=== PATIENT | female | born 1990 | race Caucasian/White ===

== ENCOUNTER 2018-01-31 20:25 | Observation (INO) | payer OTHER, SELFPAY ==
[2018-01-31 20:48] VITALS: BP 165/96; PULSE 123; RESP 15; TEMP 37.3; O2SAT 100; BMI 27.4
[2018-01-31 20:53] LABS: Bacteria Urine None Seen; RBC Urine None Seen (0-5/HPF)
--- NOTE | 2018-01-31 21:01 | ED_ITS ---
HPI - Abdominal Pain General Chief Complaint: Abdominal Pain Stated Complaint: RIGHT LOWER ABD PAIN Time Seen by Provider: 01/31/18 20:58 Source: patient Mode of arrival: ambulatory Limitations: no limitations History of Present Illness HPI narrative: 27-year-old female here for evaluation of right lower quadrant abdominal pain. Patient states that it started fairly abruptly at approximately 3 o'clock this afternoon. She states that she has had an ovarian cyst in the past and this feels somewhat like her prior ovarian cyst. She states that she tried to eat something at 4 o'clock this afternoon but became very nauseous afterwards. Has not had anything to eat or drink since then. No fevers. No vaginal bleeding. No urinary symptoms. No change in bowel habits. Has had some nausea but no vomiting. No prior abdominal surgeries. Related Data Home Medications Medication Instructions Recorded Confirmed No Known Home Medications 02/01/18 02/01/18 Allergies Allergy/AdvReac Type Severity Reaction Status Date / Time No Known Drug Allergies Allergy Verified 02/01/18 00:03 Review of Systems Constitutional Denies fatigue, Denies fever(s) and Denies headache(s) ENT Ears, Nose, Mouth, and Throat: Denies headache(s) Cardiovascular Denies chest pain and Denies dyspnea Respiratory Denies cough and Denies dyspnea Gastrointestinal Gastrointestinal: Reports abdominal pain, Denies change in bowel habits, Denies constipation, Denies diarrhea, Reports nausea and Denies vomiting Genitourinary Denies hematuria and Denies dysuria Musculoskeletal Denies myalgias and Denies arthralgias Integumentary/Breasts Denies lesions and Denies rash Neurologic Denies headache(s) Endocrine Denies fatigue Hematologic/Lymphatic Denies easy bleeding and Denies easy bruising [facility] Medical History Healthy adult (Acute) Surgical History No pertinent past surgical history (Acute) Social History household members: other Smoking Status: Never smoker Exam Initial Vital Signs Initial Vital Signs: Vital Signs Temperature 99.2 F 01/31/18 20:48 Pulse Rate 123 H 01/31/18 20:48 Respiratory Rate 15 01/31/18 20:48 Blood Pressure 165/96 H 01/31/18 20:48 Pulse Oximetry 100 01/31/18 20:48 Const General: cooperative, healthy appearing, comfortable, well developed, well groomed and No acute distress Orientation: alert, awake and oriented x3 HENMT Head: normal to inspection and normocephalic Resp Effort & Inspection: normal respiratory effort Auscultation: clear to auscultation bilaterally Cardio Rate: tachycardic Rhythm: regular rhythm Pulses: radial pulses present GI Inspection: non-distended Palpation: soft, No firm, guarding, No rigid and tender ( Right lower quadrant) Back/Spine/Pelvis Back: No CVA tenderness Skin Lesions: no lesions Rashes: no rashes Neuro General: alert, awake and oriented x3 Cognition: normal cognition Speech: speech normal Sensory Exam: no sensory deficits noted Extrem General: normal to inspection and capillary refill normal Psych Appearance: grossly normal and well kempt Course Orders Ordered: ED Orders 01/31/18 20:40 Urine Microscopic Stat 01/31/18 21:17 US pelvic complete Stat 01/31/18 21:30 Complete Blood Count AUTO DIFF Stat Comprehensive Metabolic Panel Stat Lipase Stat 01/31/18 22:03 CT abdomen pelvis w con Stat 01/31/18 23:17 Consult to General Surgery Routine Piperacillin/Tazobactam/Dextrose (Zosyn) 3.375 gm in 50 mls @ 100 mls/hr IV Q6H [facility] Last Infusion: 02/01/18 00:36 Dose: 0 mls/hr Admin: 01/31/18 23:59 Dose: 100 mls/hr Sodium Chloride (Normal Saline 0.9%) 1,000 mls @ 125 mls/hr IV CONT SYDNIE Last Admin: 02/01/18 00:59 Dose: 125 mls/hr Morphine Sulfate (Morphine) 2 mg IV Q4HR PRN PRN Reason: Pain, Mild (1-3) Last Admin: 02/01/18 02:37 Dose: 2 mg Ondansetron HCl (Zofran) 4 mg IV Q4HR PRN PRN Reason: Nausea And Vomiting Discontinued Medications Sodium Chloride (Normal Saline 0.9%) 1,000 mls @ 500 mls/hr IV BOLUS ONE Stop: 01/31/18 23:15 Last Infusion: 02/01/18 00:36 Dose: 0 mls/hr Admin: 01/31/18 21:36 Dose: 500 mls/hr Morphine Sulfate (Morphine Sulfate) 4 mg IV NOW ONE Stop: 01/31/18 21:46 Last Admin: 01/31/18 22:10 Dose: 4 mg Vital Signs - 8 hr 01/31/18 20:48 01/31/18 22:38 02/01/18 00:40 Temperature 99.2 F 98.4 F Pulse Rate 123 H 95 H 80 Respiratory Rate 15 15 16 Blood Pressure 165/96 H 135/89 Blood Pressure [Left Arm] 144/95 H Pulse Oximetry 100 97 99 MDM - Abdominal Pain Lab Data Attestation: I reviewed the patient's lab results. Result diagrams: 01/31/18 21:30 01/31/18 21:30 Lab Results 01/31/18 01/31/18 01/31/18 Range/Units 20:40 21:30 21:30 WBC 12.3 H (4.5-11.0) X10^3/uL RBC 4.50 (4.0-5.2) X10^6/uL Hgb 14.4 (12.0-16.0) g/dL Hct 41.2 (36-46) % MCV 91.7 (80-100) fL MCH 32.0 (26-34) PG MCHC 34.9 (30-36) % RDW 12.3 (11.6-14.8) % Plt Count 227 (150-400) X10^3/uL Neut % (Auto) 72.8 (50-75) % Lymph % (Auto) 16.0 L (25-40) % Tripp % (Auto) 10.6 (3-14) % Eos % (Auto) 0.2 L (2-4) % Baso % (Auto) 0.4 (0-2) % Neut # (Auto) 8900 H (7676-7707) /uL Sodium 146 H (137-145) mmol/L Potassium 3.7 (3.4-5.1) mmol/L Chloride 106 (98-107) mmol/L Carbon Dioxide 25 (22-32) mmol/L BUN 8 (7-17) mg/dL Creatinine 0.70 (0.52-1.04) mg/dL Estimated GFR > 60.0 (>60) mL/min BUN/Creatinine Ratio 11.4 (6-22) Glucose 104 H (70-100) mg/dL Calcium 9.2 (8.4-10.2) mg/dL Total Bilirubin 0.6 (0.2-1.3) mg/dL AST 23 (14-36) IU/L ALT 27 (9-52) IU/L Alkaline Phosphatase 55 (38-126) U/L Total Protein 7.9 (6.3-8.2) g/dL Albumin 4.6 (3.5-5.0) g/dL Globulin 3.3 (1.7-4.1) g/dL Albumin/Globulin Ratio 1.4 (1.0-2.8) Lipase 41 (23-300) U/L Urine RBC None seen (0-5/HPF) Urine WBC 10-30/hpf H (0-5/HPF) Ur Squamous Epith Cells 10-30 /hpf H Urine Bacteria None seen (None) Ur Culture Indicated? Cult not indicated Micro UA Comment Not Reportable Point of care testing: Point of Care Testing Test Results Negative Urine Dip Bedside Urine Glucose Negative Bedside Urine Bilirubin - Negative Bedside Urine Ketone - Negative Urine Specific Dennard 1.020 Bedside Urine Occult Blood - Negative Bedside Urine pH 6.5 Bedside Urine Protein +/- 15 Bedside Urine Urobilinogen 1+ 2mg Bedside Urine Nitrite - Negative Bedside Urine Leukocytes + [address] scan - abdomen: Radiologist's impression: appendix, retrocecal in location, is somewhat generous in size measuring about 8 mm in diameter with mild ovi appendiceal fat stranding concerning for early acute appendicitis. No ovi appendiceal abscess is or findings to suggest perforation are identified. No free fluid or free air is identified pelvic ultrasound: Radiologist's impression: no acute process is identified within the pelvis by ultrasound MDM Narrative Medical decision making narrative: patient came in tachycardic which did improve with pain medication. She also has a elevated white blood cell count. He is afebrile. Ultrasound is unremarkable. CT scan does show what appears to be early appendicitis was does fit her clinical picture. I discussed the case with Dr. aCli with General surgery who will admit the patient. He recommended placing the patient on antibiotics and getting her to his service and he stated that he would schedule her for an appendectomy eat or morning. Patient was informed of her diagnosis and the plan for admission to the hospital. she expressed understanding and agreement with plan Discharge Plan Departure Patient Disposition: Admitted as Observation Clinical Impression: Acute appendicitis Discharge Date/Time: 02/01/18 00:37 Interventions: ED Discharge Assessment Last Done: 02/01/18 00:37 Admit Date/Time: 01/31/18 23:24 Admit Provider: Sandor Cali
[2018-01-31 21:03] LABS: WBC Urine 10-30/HPF (0-5/HPF)
[2018-01-31 21:04] LABS: Culture Indicated Urine Cult Not Indicated; Squamous Epithelial Cell Urine 10-30 /HPF
--- NOTE | 2018-01-31 21:17 | DI.US.S_ITS ---
PROCEDURE: US PELVIC COMPLETE INDICATIONS: Right sided pain concern for ovary cyst TECHNIQUE: Real-time scanning was performed of the pelvic organs, with image documentation. Additional endovaginal scanning was necessary due to incomplete visualization of the adnexal and endometrial structures by transabdominal scanning. COMPARISON: [facility], CT, CT ABDOMEN PELVIS W CON, 01/31/2018, 21:59. FINDINGS: Transabdominal scanning: Limited scanning through the kidneys shows no hydronephrosis. No pathologic free abdominal or pelvic fluid. Endovaginal scanning: Uterus: Uterus is normal in size at 5.8 x 2.5 x 4.2 cm. The endometrium measures 4 mm in combined thickness. Ovaries: Right ovary measures 27 29 x 29 mm. Left ovary measures 23 x 17 x 25 mm. There are unremarkable. IMPRESSION: 1. Unremarkable exam. Dictated by: Mi Fraire M.D. on 02/01/2018 at 9:36 Approved by: Mi Fraire M.D. on 02/01/2018 at 9:40
[2018-01-31] MEDS: SODIUM CHLORIDE 0.9% 1,000 ML 500 ML IV (21:36)
[2018-01-31 21:41] LABS: Add Manual Diff / Slide Review NO; Basophils Percent Auto 0.4 % (0-2); Eosinophils Percent Auto 0.2 % (2-4); Hematocrit 41.2 % (36-46); Hemoglobin 14.4 g/dL (12.0-16.0); Mean Corpuscular HGB Conc 34.9 % (30-36); Mean Corpuscular Volume 91.7 fL (80-100); Monocytes Percent Auto 10.6 % (3-14); Neutrophils Absolute Auto 8900 /uL (3000-5900); Neutrophils Percent Auto 72.8 % (50-75); Platelet Count 227 X10^3/uL (150-400); Red Cell Distribution Width 12.3 % (11.6-14.8); White Blood Cell Count 12.3 X10^3/uL (4.5-11.0)
[2018-01-31 21:51] LABS: Alanine Aminotransferase 27 IU/L (9-52); Albumin 4.6 g/dL (3.5-5.0); Albumin Globulin Ratio 1.4 (1.0-2.8); Alkaline Phosphatase 55 U/L (38-126); Aspartate Aminotransferase 23 IU/L (14-36); BUN Creatinine Ratio 11.4 (6-22); Bilirubin Total 0.6 mg/dL (0.2-1.3); Blood Urea Nitrogen 8 mg/dL (7-17); Calcium 9.2 mg/dL (8.4-10.2); Carbon Dioxide 25 mmol/L (22-32); Chloride 106 mmol/L (98-107); Estimated Glomerular Filt Rate > 60.0 mL/min (>60); Globulin 3.3 g/dL (1.7-4.1); Glucose 104 mg/dL (70-100); HEMOLYSIS 36 (0-50); Lipase 41 U/L (23-300); Potassium 3.7 mmol/L (3.4-5.1); Sodium 146 mmol/L (137-145); Total Protein 7.9 g/dL (6.3-8.2)
--- NOTE | 2018-01-31 22:03 | DI.CT.S_ITS ---
PROCEDURE: CT ABDOMEN PELVIS W CON INDICATIONS: Right-sided abdominal pain TECHNIQUE: After the administration of intravenous contrast, 5 mm thick sections acquired from the diaphragm to the symphysis. 5 mm coronal and sagittal reformats were acquired. For radiation dose reduction, the following was used: automated exposure control, adjustment of mA and/or kV according to patient size. COMPARISON: None. FINDINGS: Image quality: Excellent. ABDOMEN: Lung bases: Lung bases are clear. Heart size is normal. Solid organs: Liver is normal in size and enhancement. Gallbladder is unremarkable. Biliary system is non dilated. Pancreas enhances normally. Spleen is normal in size and enhancement. No adrenal nodules. Kidneys demonstrate normal size and enhancement, without hydronephrosis. Right renal cyst is noted measuring 19 mm. Peritoneum and bowel: Bowel loops demonstrate normal wall thickness and caliber. No free fluid or air. Appendix is borderline enlarged measuring approximately 7 mm. There is minimal periappendiceal stranding. No appendicoliths. No priors are available for comparison. Nodes and vessels: No retroperitoneal or mesenteric adenopathy by size criteria. Aorta and inferior vena cava are normal in size. Miscellaneous: No ventral hernias. PELVIS: Genitourinary: Bladder wall thickness is normal. Miscellaneous: No inguinal hernias or adenopathy. Bones: No suspicious bony lesions. No vertebral body compression fractures. IMPRESSION: 1. Minimally enlarged appendix with minimal periappendiceal stranding. Early appendicitis cannot be excluded and recommend clinical correlation and short interval imaging followup. No priors are available for comparison. Dictated by: Mi Fraire M.D. on 02/01/2018 at 9:14 Approved by: Mi Fraire M.D. on 02/01/2018 at 9:16
[2018-01-31] MEDS: MORPHINE 5 MG/ML INJ 4 MG IV (22:10)
[2018-01-31 22:38] VITALS: BP 144/95; PULSE 95; RESP 15; O2SAT 97
[2018-01-31] MEDS: PIPERACILLIN-TAZO 3.375 GM/50 ML FROZ.PIGGY IV (23:59)
[2018-02-01] VITALS (20 sets, daily range): BP systolic 90–138; BP diastolic 54–89; PULSE 60–90; RESP 10–24; TEMP 36.3–37; O2SAT 95–99; BMI 27.4
--- NOTE | 2018-02-01 | PATH_ITS ---
[facility] Accession Number: [id number] . 01 Material submitted: . APPENDIX . 02 Diagnosis: Appendix: Acute appendicitis. MRV/02/04/2018 . 02 Electronically signed: . Tyree Cage MD, Pathologist NPI- [id number] . 01 Gross description: . Received in formalin, labeled appendix, is an intact appendix (length-3.1 cm, diameter-0.7 cm) with rubin-pink smooth shiny serosa and attached mesoappendix (up to 2.1 cm in depth). The resection margin is received stapled. The lumen contains clear colorless fluid. The wall is up to 0.3 cm thick. No nodules, masses or lesions are identified. The resection margin is inked black. Section code: (A1) resection margin en face and three additional serial sections; (A2) one-half of the bivalved tip. ([id number]) /MRV . 02 Pathologist provided ICD-10: K35.80 . 02 CPT . 059050 Specimen Comment: A duplicate report has been generated due to demographic updates. Performed at: 01 [facility] [address] [facility]ly [facility], [place], [place] [id number] MD Clement Mcfarland MD Phone: [phone] Performed at: 02 [facility] [address] [place], [place] [id number] MD Angel Kim MD Phone: [phone]
[2018-02-01] MEDS: SODIUM CHLORIDE 0.9% 1,000 ML 125 ML IV (00:59)
[2018-02-01] MEDS: MORPHINE 2 MG/ML INJ IV (02:37)
[2018-02-01] MEDS: PIPERACILLIN-TAZO 3.375 GM/50 ML FROZ.PIGGY IV ×2 (05:20→12:48)
[2018-02-01] MEDS: LACTATED RINGERS 1,000 ML 42 ML IV ×2 (08:40→12:22)
--- NOTE | 2018-02-01 08:59 | CM.DANOTE ---
Addendum entered by Dionna Bray LPN 02/01/18 09:03: Pt is a 27 year old who is emploeyed by [employer]. Payer: Negar Garcia. She admitted to care of General Surgery team yesterday and, per ER report, Dr. Cali plans to take pt to surgery for appendectomy today. Pt is currently NPO, says Dr. Cali has just been in to see her. P: follow prn post surgery to assist with any d/c needs taht may arise. Original Note: Discharge Planning/Care Management DCP: assessment: Case received, EMR reviewed and met with pt 0800. Introduced self and role. CM Discharge Assessment Start: 02/01/18 08:56 Freq: Status: Active Protocol: Document 02/01/18 08:57 ITV (Rec: 02/01/18 08:59 ITV [id number]) Discharge Planning Assessment Advance Directives? No Advance Directives on File No History Provided By Patient Medical Record Prior Living Arrangements House Comment pt reports her emergency contact is her : Emi Barba [phone] Independent with ADL's Yes Is patient alert and oriented? Yes Whiteboard Updated in Patient Room with Yes name and ext. # of Modeling Analyst Review Status In Process Next Review Type Continued Stay Review
--- NOTE | 2018-02-01 09:22 | SUR.OPER ---
Supine on padded OR bed, head on pillow, arms secured on padded arm boards at <90 degrees abduction, legs uncrossed, safety belt at thigh, tape over blanket over lower legs.
[2018-02-01] MEDS: BUPIVACAINE 0.5% W/ EPI (PF) VIAL 30 ML INJ (10:03)
[2018-02-01] MEDS: ONDANSETRON 4 MG/2 ML INJ IV ×2 (10:30→14:05)
[2018-02-01] MEDS: MEPERIDINE 50 MG/ML 12.5 MG IV ×2 (10:35→10:45)
[2018-02-01] MEDS: HYDROMORPHONE 2 MG INJ 0.5 MG IV ×4 (10:40→11:00)
--- NOTE | 2018-02-01 13:39 | OP_ITS ---
DATE OF SERVICE: 02/01/2018 PREOP DIAGNOSIS: Acute appendicitis. POSTOP DIAGNOSIS: Acute uncomplicated appendicitis. PROCEDURE: Laparoscopic appendectomy SURGEON: Sandor Cali MD DESCRIPTION OF PROCEDURE: The patient was properly identified during surgical pause, prepped and draped in a sterile fashion with exposure of the lower abdomen to mid abdomen under general endotracheal anesthesia. A 5-mm incision was made just to the right and above the umbilicus, and a 5-mm trocar, Optiview direct vision trocar was placed into the peritoneal cavity under excellent visualization, and with no visceral injury, a pneumoperitoneum was safely established. A 12-mm portal was placed in the left lower abdomen, and a 5-mm portal also placed in the left lower quadrant. The patient was placed in Trendelenburg, rotated to her left. This visualized the cecum. The appendix was acutely inflamed. It was elevated. The mesoappendix divided with a vascular white load of the endostapler, and then the base of the appendix was actually secured with an Endoloop and then jules applied distal to the Endoloop; so she had 2 methods of securing the base of the appendix. The blue load of the endoscopic/laparoscopic stapler was employed to secure the stump of the appendix. This all looked very secure. There was no bleeding, no stool leakage. The appendix was placed in an Endocatch back and brought out through the 12-mm port. The operative site irrigated with a liter of sterile saline, aspirated dry. There was no bleeding and no purulence, no leakage. The larger 12-mm port fascia was closed with 0 Vicryl, the skin stapled in all 3 incisions. Sterile dressings applied. She tolerated the procedure very well. TRISTON DUNCAN - /kenan/ doc#: [id number]/job#: [id number] dd: 02/01/2018 10:17:00 dt: 02/01/2018 13:06:00 DICTATING MD/COPIES TO: Sandor Cali MD COPIES MNE: RONIT
[2018-02-01] MEDS: DEXTROSE 5%-0.45% NS 1,000 ML 100 ML IV ×2 (14:09→23:43)
--- NOTE | 2018-02-01 15:06 | PC.NURSE ---
Pt back from surgery earlier. 3 small incisions to lower abdomen all cdi. Bt hypo x4. Pts r.lower abdomen is tender. Give ice chips and some ice cream and pt became nauseous. Given 4mg of iv zofran and helpful. Pt is on D51/2NS at 100cc hour and tolerating well. She is resting comfortably now.
[2018-02-01] MEDS: METOCLOPRAMIDE 10 MG/2 ML INJ IV (17:58)
[2018-02-01] MEDS: BENZOCAINE/MENTHOL 1 LOZ PKT 1 EACH PO ×2 (18:00→20:36)
--- NOTE | 2018-02-01 18:00 | HP_ITS ---
DATE OF SERVICE: 01/31/2018 HISTORY OF PRESENT ILLNESS: A 27-year-old white female patient comes in with 1- day history of abdominal pain, now centered in the right lower quadrant. She has had some nausea, anorexia. White count 12,300. CT scan positive for acute appendicitis. Ultrasound negative for ovarian cyst. She is being prepared for appendectomy. She has received 1 dose of those already, and we will be taking her appendix out shortly PAST MEDICAL HISTORY: Denies diabetes, heart disease, or hypertension. PAST SURGICAL HISTORY: None. ALLERGIES: HAS NO KNOWN DRUG ALLERGIES. MEDICATIONS: Takes no medications at home. REVIEW OF SYSTEMS: Entirely negative. PHYSICAL EXAMINATION VITAL SIGNS: Temperature 97.6, blood pressure 130/80, heart rate in the 70s. HEENT: Ears, nose, and throat are normal. NECK: No adenopathy CHEST: Lungs are clear. HEART: Regular rhythm. No murmur. ABDOMEN: Tender the right lower quadrant with guarding and early rebound tenderness. Positive Rovsing sign side. No masses are populated. The remaining physical is unremarkable. DIAGNOSIS: Acute appendicitis. PLAN: Open appendectomy. TRISTON DUNCAN - /kenan/ doc#: [id number]/job#: [id number] dd: 02/01/2018 08:10:00 dt: 02/01/2018 09:05:00 DICTATING /COPIES TO: Sandor Cali MD COPIES MNE: RONIT
[2018-02-01] MEDS: OXYCODONE/ACETAMINOPHEN 5/325 TABLET 1 TAB PO ×2 (18:01→23:02)
[2018-02-01] MEDS: KETOROLAC 30 MG/ML VIAL IV (21:28)
--- NOTE | 2018-02-01 21:33 | PC.NURSE ---
SHIFT NOTE sleepy but easily arouses to verbal stimuli. c/o constant nausea, states may be due to morphine and abdominal pain rated 7-8/10. pt also with complaints of throat pain, stating that it's too painful to swallow any pills at this time. MD notified and medications adjusted. pt with gassy pains to RUQ/RUE area, agreeable to walk in hallways x2 and sit up in chair. pt currently resting. call light within reach.
--- NOTE | 2018-02-02 03:06 | PC.NURSE ---
shift note Met with pt at start of shift. AOx3. 99% on RA. Pain 11/04. Pt had just received PRN pain med. Pt declined SCDs/ compression socks at this time. Call light in reach.
[2018-02-02 05:00] VITALS: BP 124/72; PULSE 78; RESP 18; TEMP 36.9; O2SAT 97
[2018-02-02] MEDS: OXYCODONE/ACETAMINOPHEN 5/325 TABLET 1 TAB PO ×3 (05:01→14:11)
[2018-02-02] MEDS: KETOROLAC 30 MG/ML VIAL IV ×2 (06:20→14:07)
[2018-02-02 07:45] VITALS: BP 135/72; PULSE 99; RESP 16; TEMP 36.6; O2SAT 97
[2018-02-02 07:54] VITALS: O2SAT 96
[2018-02-02] MEDS: DEXTROSE 5%-0.45% NS 1,000 ML 100 ML IV (10:01)
[2018-02-02 12:00] VITALS: BP 135/79; PULSE 72; RESP 16; TEMP 36.4; O2SAT 97
--- NOTE | 2018-02-02 13:01 | CM.DPC ---
DCP Cont: Met with patient, stated that she is anxious to go home. Has no discharge needs at this time, but will continue to check in if patient needs any type of resources. She has not yet seen surgeon. P: DCP to continue to assess, patient's goal is to return home. Jodi Armendariz RN/Echo Vascular Technologist
--- NOTE | 2018-02-02 14:39 | PM.DS.1 ---
History of Present Illness Date Patient Seen: 02/02/18 Time Patient Seen: 14:40 Chief complaint: RIGHT LOWER ABD PAIN Narrative: Very pleasant 27-year-old lady admitted with abdominal pain and eventually found to have acute appendicitis. Discharge Providers Date of admission: 01/31/18 23:24 Discharge provider: Esperanza Hinojosa MD Discharge Date: 02/02/18 Summary Discharge Diagnosis: Acute appendicitis Hospital Course: She was taken to the operating room for an uneventful laparoscopic appendectomy and has done well postoperatively. This morning, her pain is well controlled, she is tolerating a regular diet, and she has been walking in the halls. She reports that she has been passing flatus but has not had a bowel movement since the time of surgery. She is discharged to her home in the care of her family. She will follow up with me in 2 weeks at my office. Status at Discharge Functional status at discharge: independent ambulation Overall status at discharge: patient is progressing back to baseline Time Spent with Patient Less than 30 minutes Exam Vital Signs (past 8 hours): - 02/02/18 07:45 02/02/18 07:54 02/02/18 12:00 Temperature 97.9 F 97.6 F Pulse Rate 99 H 72 Respiratory Rate 16 16 Blood Pressure 135/72 135/79 Pulse Oximetry 97 96 97 Oxygen Delivery Method Room Air Oxygen Flow Rate 0 Objective Labs Result Diagrams: 01/31/18 21:30 01/31/18 21:30 Discharge Plan Discharge Plan Patient Disposition: Home Discharge Med Rec/Prescriptions Prescriptions: New oxycodone-acetaminophen 5-325 mg Tablet 1 tab PO Q4HR PRN (Reason: Pain, Moderate (4-6)) Qty: 20 RF: 0 No Action No Known Home Medications RF: 0 Follow up/Referrals: Esperanza Hinojosa MD [Physician] - 2 Weeks Provider Discharge Instructions Diet: Diet as Tolerated Activity: You may shower as desired. Do not soak the incisions in water for at least 2 weeks. Continue to apply ice to the incisions as often as tolerated for the next 24 hours. This will help with pain and bruising and also with swelling. Remember to take a stool softener at least once daily while using narcotic pain medications. Skin/Wound/Dressing Care Report to your healthcare provider any signs of infection, such as:: chills, fever, night sweats, increased pain and unusual drainage Discharge Data Attending Provider: Sandor Cali Admit Date/Time: 01/31/18 23:24 Quality VTE Deep Vein Thrombosis/Pulmonary Embolism Present on Admission: No
== END 2018-02-02 15:21 | disposition home or self-care (01) ==
LOC: ED 23:10 → AC 02-01
PROVIDERS: Internal Medicine; Admitting Provider Surgery; Emergency Provider Emergency Medicine; Visit Provider Surgery
PROC: 0DTJ4ZZ Resection of Appendix, Percutaneous Endoscopic Approach (ICD-10-PCS; CPT 44970; principal; 2018-02-01 08:30)
DX: K35.80 Unspecified acute appendicitis (principal); R10.31 Right lower quadrant pain
CPT/HCPCS: 44970; 36591; 74177; 76830; 76856; 80053; 81003; 81015; 81025; 83690; 85025; 88304; 96361; 96365; 96375; 99283; 99285; G0378; J1100; J1170; J1885; J2175; J2270; J2405; J2543; J2704; J2765; Q9967

== ENCOUNTER → 2018-04-25 09:42 | Outpatient (CLI) | payer OTHER, SELFPAY ==
[2018-02-01 01:07] VITALS: BMI 27.4
--- NOTE | 2018-04-25 | DI.MRI.S_ITS ---
PROCEDURE: MR LUMBAR SPINE WO CON INDICATIONS: LUMBAR SPINE PAIN TECHNIQUE: Noncontrast sagittal T1 spin echo and T2 fast echo, sagittal STIR, axial T1 and T2 fast spin echo through the lumbar spine. In cases with scoliosis, additional coronal T2 fast spin echo may be performed. COMPARISON: [facility], CR, XR LUMBAR SPINE WITH OLBIQUES PLUS FLEXION EXTENSION, 03/23/2018, 14:53. FINDINGS: Image quality: Excellent. Alignment and Curvature: There is normal bony alignment. Bone Marrow: Marrow is of normal overall signal. No acute vertebral body compression fractures. Spinal Cord: Conus medullaris terminates at the T12 level. Visualized cord demonstrates normal signal and size. Paraspinous Soft Tissues: No paravertebral masses. L1-L2: Normal appearance. L2-L3: Normal appearance. L3-L4: Normal appearance. L4-L5: Normal appearance. L5-S1: Loss of disc signal. Mild, diffuse disc bulge. Small central disc protrusion. No central stenosis. Mild left neural foraminal narrowing. No neural impingement. Focal high intensity zone is noted in the posterior annulus compatible with a fissure. IMPRESSION: 1. Mild L5-S1 degenerative disc disease. 2. No central stenosis 3. No significant neural foraminal narrowing. 4. No neural impingement. 5. L5-S1 disc annulus fissure. Dictated by: Thi Mayo MD, PhD on 04/27/2018 at 10:15 Approved by: Thi Mayo MD, PhD on 04/27/2018 at 10:18
== END ==
PROVIDERS: Visit Provider Physical Medicine & Rehabilitation Pain Medicine
DX: M51.37 Other intervertebral disc degeneration, lumbosacral region (principal); M54.5 Low back pain
CPT/HCPCS: 72148